=== PATIENT | female | born 1960 | race African-American/Black ===

== ENCOUNTER 2022-05-17 21:45 | Emergency (ER) | payer MEDICARE ==
[2022-05-18 04:18] LABS: HEMOGLOBIN 11.1 gm/dl (12.3-15.3); RED BLOOD COUNT 3.75 M/UL (4.00-5.10); WHITE BLOOD COUNT 8.5 K/UL (4.5-11.0)
[2022-05-18 04:42] LABS: BUN/CREATININE RATIO 22 (0-10)
[2022-05-18] MEDS ORDERED: ZOFRAN ODT 4 MG4 MG PO (05:53)
[2022-05-18] MEDS ORDERED: OMNICEF 300 MG300 MG PO (05:53)
== END 2022-05-18 06:00 | disposition home or self-care (01) ==
LOC: ER1 21:45
PROVIDERS: Physician Assistant
DX: N39.0 Urinary tract infection, site not specified (principal); F17.210 Nicotine dependence, cigarettes, uncomplicated; Z20.822 Contact with and (suspected) exposure to COVID-19
CPT/HCPCS: 0240U; 71045; 80053; 80307; 81001; 82550; 82553; 84484; 85025; 87086; 93005; 99284